=== PATIENT | female | born 1935 | race Caucasian/White ===

== ENCOUNTER → 2019-05-30 15:20 | Outpatient (BNVA) | payer MEDICARE, OTHER, SELFPAY | PROVIDERS: Family Provider Family Medicine; PCP Family Medicine; Visit Provider Internal Medicine Rheumatology | DX: M15.0 Primary generalized (osteo)arthritis (principal); Z79.899 Other long term (current) drug therapy; L40.9 Psoriasis, unspecified | CPT/HCPCS: 36415; 80076; 82310; 82565; 85025; 85651; 86140; 99214; G0463 ==

== ENCOUNTER → 2019-05-30 16:27 | Outpatient (BNVA) | payer MEDICARE, OTHER, SELFPAY | PROVIDERS: Family Provider Family Medicine; PCP Family Medicine; Visit Provider Internal Medicine Rheumatology | DX: Z79.899 Other long term (current) drug therapy (principal); L40.9 Psoriasis, unspecified; M15.0 Primary generalized (osteo)arthritis | CPT/HCPCS: 85025 ==

== ENCOUNTER 2019-05-31 14:04 | Outpatient (CLI) | payer MEDICARE, OTHER, SELFPAY ==
--- NOTE | 2019-05-31 14:26 | XR_ITS ---
WS: [id number] Right hand, 3 views, 05/31/2019 Clinical Data: osteoarthritis Comparison: None. Findings: There is calcification at the base of the right first metacarpal with subluxation radially. There is fragmentation of the trapezium.The DIP joints show narrowing with the most severe change at the secon d and third DIP joints. Minimal narrowing of the PIP joints is also noted. Minimal calcification of t he triradiate cartilage is seen. No fractures are seen. XR/XR hand RT min 3V* [id number] Impression: 1. Osteoarthritic change with radial subluxation of the base of the right first metacarpal and articulation with the trapezium. 2. Osteoarthritic change of the PIP and DIP joints, especially the second and t hird DIP joints. 3. Calcification of the triradiate cartilage.
--- NOTE | 2019-05-31 14:26 | XR_ITS ---
WS: [id number] Left hand, 3 views, 05/31/2019 Clinical Data: osteoarthritis Comparison: Left hand, 05/28/2012. Findings: The calcifications noted on the prior examination are still present. There are calcifications inferio r to the base of the left first metacarpal. There is irregularity and sclerosis of the articulation o f the left first metacarpal and the trapezium with a radial displacement. There are also calcificatio ns at the radial base of the left second metacarpal. Triangular cartilage calcifications are also see n. There is minimal narrowing of the PIP and DIP joints but no change from before. There are no fractures or dislocations. XR/XR hand LT min 3V* [id number] Impression: 1. Calcifications involving the base of the left first metacarpal and left seco nd metacarpal with erosion of the trapezium unchanged. 2. Calcifications of the triangular fibrocartilage unchanged. 3. Minimal narrowing of the PIP and DIP joints unchanged.
--- NOTE | 2019-05-31 14:26 | XR_ITS ---
WS: [id number] Left foot, 3 views, 05/31/2019 Clinical Data: osteoarthritis Comparison: None. Findings: The patient has had an osteotomy and bunionectomy of the distal left first metatarsal. There are 2 or thopedic screws in the distal left first metatarsal. There is partial amputation of the distal portio n of the left fifth metatarsal. Erosion, irregularity and narrowing of the left first and second MP j oints can be seen. There is a proximal medial spur of the left first distal phalanx. The tarsal bones are intact. Phalanges show no significant abnormalities. There is diffuse osteoporosis. No fractures or dislocations are seen. XR/XR foot LT min 3V* [id number] Impression: 1. Osteotomy and bunionectomy of the distal left first metatarsal. 2. 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 3. Osteoarthritic change of the left first and second MP joints. 4. Diffuse osteoporosis.
--- NOTE | 2019-05-31 14:26 | XR_ITS ---
WS: [id number] Right foot, 3 views, 05/31/2019 Clinical Data: osteoarthritis Comparison: None. Findings: The patient has had a bunionectomy of the medial distal right first metatarsal. No fractures or dislo cations are seen. The MP joints, PIP joints and DIP joints show only lateral deviation of the right f irst IP joint. Tarsal bones are intact. There is diffuse osteoporosis. XR/XR foot RT min 3V* [id number] Impression: 1. Bunionectomy of the distal right first metatarsal. 2. Minimal osteoarthritic change with lateral deviation at the right first IP j oint.
== END 2019-05-31 14:05 | disposition home or self-care (01) ==
LOC: RADWPI 14:09
PROVIDERS: Family Provider Family Medicine; PCP Family Medicine; Visit Provider Internal Medicine Rheumatology
DX: M19.072 Primary osteoarthritis, left ankle and foot (principal); M19.071 Primary osteoarthritis, right ankle and foot; M81.0 Age-related osteoporosis without current pathological fracture; Z89.422 Acquired absence of other left toe(s); Z98.890 Other specified postprocedural states; Z79.899 Other long term (current) drug therapy
CPT/HCPCS: 73130; 73630

== ENCOUNTER → 2019-09-25 10:54 | Outpatient (BNVA) | payer MEDICARE, OTHER, SELFPAY | PROVIDERS: Family Provider Family Medicine; PCP Family Medicine; Visit Provider Internal Medicine Rheumatology | DX: L40.50 Arthropathic psoriasis, unspecified (principal); M05.9 Rheumatoid arthritis with rheumatoid factor, unspecified; M15.0 Primary generalized (osteo)arthritis; M81.0 Age-related osteoporosis without current pathological fracture; M11.20 Other chondrocalcinosis, unspecified site; Z87.39 Personal history of other diseases of the musculoskeletal system and connective tissue; Z79.899 Other long term (current) drug therapy; M47.26 Other spondylosis with radiculopathy, lumbar region; Z79.52 Long term (current) use of systemic steroids | CPT/HCPCS: 36415; 80076; 99214 ==